=== PATIENT | male | born 1995 | race African-American/Black ===

== ENCOUNTER 2022-07-15 17:15 | Emergency (ER) | payer SELFPAY ==
[~2022-07-15] VITALS: Ht 177.8 cm; Wt 93.0 kg
[2022-07-15 17:24] VITALS: BP 134/86
== END 2022-07-15 22:47 | disposition left against medical advice (07) ==
LOC: ER 17:15
DX: Z53.21 Procedure and treatment not carried out due to patient leaving prior to being seen by health care provider (principal)